=== PATIENT | male | born 1975 | race Caucasian/White ===

== ENCOUNTER 2021-08-02 14:52 | Emergency (ER) | payer OTHER, SELFPAY ==
[2021-08-02] VITALS (12 sets, daily range): BP systolic 104–124; BP diastolic 68–88; PULSE 49–71; RESP 14–18; TEMP 35.9; O2SAT 99–100
--- NOTE | 2021-08-02 15:39 | ED.SKABFB ---
HPI - Skin/Abscess/Foreign Bdy General Chief complaint: Skin/Abscess/Foreign Body Stated complaint: Wasp Sting Time Seen by Provider: 08/02/21 15:39 Source: patient Mode of arrival: ambulatory Limitations: no limitations History of Present Illness HPI narrative: Osmany Goel is a 45 yo male with PMH of wasp allergy comes to [facility] with 7 wasp stings on his hands and legs and one on his buttocks while cutting grass. He is got erythema and mild induration of the stings but no difficulty breathing and no swelling of extremity Related Data Home Medications Medication Instructions Recorded Confirmed No Home Medications 08/02/21 08/02/21 Allergies Allergy/AdvReac Type Severity Reaction Status Date / Time Wasp Allergy Unknown Jittery Uncoded 08/02/21 15:21 Review of Systems Review of Systems: CONSTITUTIONAL: Denies fever, chills, sweats. EYES: Denies visual changes, redness, discharge. ENT: Denies rhinorrhea, congestion, sore throat, otalgia. CARDIOVASCULAR: Denies chest pain, palpitations, edema. RESPIRATORY: Denies dyspnea, wheezing, cough GASTROINTESTINAL: Denies abdominal pain, nausea, vomiting, diarrhea. GENITOURINARY: Denies dysuria, hematuria, abnormal discharge SKIN: Denies rash or itching. Multiple wasp stings to legs and hand NEUROLOGIC: Denies numbness, or focal weakness. PSYCHIATRIC: Denies anxiety or depression. 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 There is no relevant family history pertinent to the presenting complaint. Exam Narrative: Constitution: Adult male who is quite anxious Head: Normal cephalic Sclera clear/white. Vision is grossly intact. EARS: External ears normal. Hearing grossly intact. NOSE: External nose normal without nasal discharge, THROAT: Mucous membranes moist, posterior pharynx clear with no obstruction no tongue swelling no lip swelling NECK: Neck supple, non-tender CARDIOVASCULAR: Regular rate and rhythm without murmurs, gallops, or rubs. RESPIRATORY: Clear to auscultation. Breath sounds equal bilaterally. No wheezes, rales, or rhonchi. GASTROINTESTINAL: Abdomen soft, SKIN: warm, intact with no suspicious lesions or rash, good texture and turgor. NEURO: awake, alert, and oriented to person, place and time. There were no obvious focal neurologic abnormalities. Steady gait EXTREMITIES: Normal range of motion. BACK: Nontender without deformity Course Course Emergency Course: Patient was cutting grass and got stung by 7 bees on legs buttock and left finger Given Solu-Medrol 80 mg IM Medrol Dosepak/Benadryl/Pepcid to be taken for the next couple days discussed how to take steroids to avoid sleeplessness Critical care: After patient got IM injection and nurse left the room he appeared to have a vasovagal response and lost consciousness. He was supported by staff and given his level disorientation his first waking up we gave him some IV fluids of normal saline, he was complaining of nausea and given Zofran 4 mg IV his pulse ox has remained at 97% blood pressure was 103/70. EKG showed normal sinus rhythm with a heart rate of 59 with no axis deviation and no ST elevation. Patient placed in Trendelenburg and his vital signs improve will be moved to a normal position Vital Signs Vital signs: Vital Signs Temperature 96.6 F L 08/02/21 15:04 Pulse Rate 71 08/02/21 15:04 Respiratory Rate 16 08/02/21 15:04 Blood Pressure 124/77 08/02/21 15:04 Pulse Oximetry 99 08/02/21 15:04 Temperature 96.6 F L 08/02/21 15:04 Pulse Rate 59 L 08/02/21 17:00 Respiratory Rate 16 08/02/21 17:00 Blood Pressure 117/81 0
[2021-08-02] MEDS: methylPREDNISolone SOD SUCC 125 MG VIAL 80 MG IM (16:00)
[2021-08-02] MEDS: ONDANSETRON INJ 4 MG/2 ML VIAL IV PUSH (16:15)
[2021-08-02 16:21] LABS: Glucose Point of Care 92 mg/dl (65-105)
--- NOTE | 2021-08-02 16:42 | PC.NURSE ---
08/02/21 at 1600 PATIENT WAS GIVEN 80MG SOLUMEDROL IM X1. PT WAS VERY ANXIOUS PRIOR TO IM INJECTION. 1608 CAME TO THE DESK SAYING HE WAS NAUSEATED. THIS NURSE ARRIVED IN THE ROOM WITH HL7 INTERFACE DEVELOPER AND TECH. PT WAS SITTING ON THE STOOL NEAR THE TRASH CAN. PALE, DIAPHORETIC AND SLUGGISH. PT HAD A SYNCOPAL EPISODE. cOOL CLOTHS TO NECK AND FOREHEAD. PT AWAKENED AFTER 2 MINUTES. STILL PALE AND SWEATY. PT ALERT. OX3. #18 IV CATHTER INSERTED TO THE MARITZA AND SECURED WITH TAPE. STOOD WITH ASSISTANCE TO WHEELCHAIR. TAKEN TO ROOM 1 VIA WHEELCHAIR. PT STOOD WITH ASSISTANCE AND TRANSFERRED TO THE STRETCHER. STILL PALE ANS SWEATY. STRETCHER PLACED IN TRENDELENBERG. WELL SERVICE PUMP EQUIPMENT OPERATOR ON SINUS BRADYCARDIA PER MONITOR. 1615 NS 1000ML BOLUS INITIATED PER EXISTING IV. ZOFRAN 4MG GIVEN FOR NAUSEA. VS STABLE.(SEE VS RECORD.
--- NOTE | 2021-08-02 17:59 | PCDIET ---
IV FLUID BOLUS INITIATED AT 1615. IV BOLUS COMPLETED AT 1645. 1000ML INTAKE OF 0.9 NS
--- NOTE | 2021-08-02 18:01 | PC.NURSE ---
1619 FSBS 92MG/DL
--- NOTE | 2021-08-02 18:04 | PC.NURSE ---
1610 IV INSERTED(#18 IV CATHETER) TO MARITZA. 1720 IV CATH DISCONTINUED INTACT. PRESSURE DRESSING TO SITE.
== END 2021-08-02 17:30 | disposition home or self-care (01) ==
PROVIDERS: Emergency Provider Nurse Practitioner; PCP Family Medicine Sports Medicine
DX: T63.451A Toxic effect of venom of hornets, accidental (unintentional), initial encounter (principal); R55 Syncope and collapse; R11.0 Nausea
CPT/HCPCS: 82948; 96372; 96374; 99214; G0463; J2405; J2930; J7030

== ENCOUNTER 2024-07-22 12:48 | Emergency (ER) | payer OTHER, SELFPAY ==
[2024-07-22 13:00] VITALS: BP 129/90; PULSE 60; RESP 16; TEMP 36.4; O2SAT 99
--- NOTE | 2024-07-22 13:06 | ED.SKABFB ---
HPI - Skin/Abscess/Foreign Bdy General Chief complaint: Skin/Abscess/Foreign Body Stated complaint: wasp sting top of head Time Seen by Provider: 07/22/24 13:06 Source: patient Mode of arrival: ambulatory Limitations: no limitations History of Present Illness HPI narrative: 48-year-old male presents with complaint of wasp sting to scalp. Patient states that sting happened approximately 2 hours prior to arrival. Has taken 2 Benadryl the Pepcid. Patient requesting prednisone. States last time he had steroid shot he passed out. No difficulty swallowing Or breathing. all systems reviewed and negative except as noted above. Related Data Allergies Allergy/AdvReac Type Severity Reaction Status Date / Time Wasp Allergy Unknown Jittery Uncoded 07/22/24 12:56 Review of Systems Review of Systems: CONSTITUTIONAL: Denies fever, chills, or sweats. EYES: Denies visual changes, redness, or discharge. ENT: Denies rhinorrhea, congestion, sore throat, or otalgia. CARDIOVASCULAR: Denies chest pain, palpitations, or edema. RESPIRATORY: Denies cough or dyspnea. GASTROINTESTINAL: Denies abdominal pain, nausea, vomiting, or diarrhea. GENITOURINARY: Denies dysuria or hematuria. SKIN: Denies rash or itching. Reports wasp sting to scalp. MUSCULOSKELETAL: Denies back pain, joint pain, or myalgia. NEUROLOGIC: Denies headache, numbness, or weakness. PSYCHIATRIC: Denies anxiety or depression. All other systems reviewed are negative, except as documented in HPI. 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 There is no relevant family history pertinent to the presenting complaint. Exam Narrative: GENERAL: This is a well-nourished, well-developed patient, in no apparent distress. HEAD: normocephalic, atraumatic. EYES: PERRL. Sclera clear/white. Vision is grossly intact. EARS: External ears normal NOSE: External nose normal NECK: Neck supple, non-tender without lymphadenopathy, masses or thyromegaly. CARDIOVASCULAR: Regular rate and rhythm without murmurs, gallops, or rubs. RESPIRATORY: Clear to auscultation. Breath sounds equal bilaterally. No wheezes, rales, or rhonchi. SKIN: warm, Dry, intact with no suspicious lesions or rash, good texture and turgor. Patient is bald. There is no abnormality noted to his scalp concerning for a wasp sting. No swelling or erythema. NEURO: awake, alert, and oriented to person, place and time. There were no obvious focal neurologic abnormalities. EXTREMITIES: No joint tenderness, effusion, or edema noted. Course Course Level of Care: Express Care Visit Vital Signs Vital signs: Vital Signs Temperature 36.4 C 07/22/24 13:00 Pulse Rate 60 07/22/24 13:00 Respiratory Rate 16 07/22/24 13:00 Blood Pressure 129/90 07/22/24 13:00 Pulse Oximetry 99 07/22/24 13:00 Oxygen Delivery Room Air 07/22/24 13:00 Temperature 36.4 C 07/22/24 13:00 Pulse Rate 60 07/22/24 13:00 Respiratory Rate 16 07/22/24 13:00 Blood Pressure 129/90 07/22/24 13:00 Pulse Oximetry 99 07/22/24 13:00 Oxygen Delivery Room Air 07/22/24 13:00 Reviewed MDM - Skin/Abscess/Foreign Bdy MDM Narrative Medical decision making narrative: no abnormality noted to patient's scalp concerning for what sting. Patient is insistent that he gets steroid due to history of lasting with significant swelling. Will prescribe prednisone. Recommend patient not start medications unless he has worsening of his symptoms. Patient is aware of diagnosis, understands and agrees to treatment plan. Anticipatory guidance given. Patient agrees
== END 2024-07-22 13:17 | disposition home or self-care (01) ==
PROVIDERS: Emergency Provider Nurse Practitioner Family; PCP Family Medicine
DX: T63.461A Toxic effect of venom of wasps, accidental (unintentional), initial encounter (principal)
CPT/HCPCS: 99213; G0463